=== PATIENT | female | born 1940 | race Caucasian/White ===

== ENCOUNTER 2018-02-03 11:35 | Emergency (ER) | payer MEDICARE, MEDICAID ==
--- NOTE | 2018-02-03 12:33 | UC ---
Upper Extremity HPI - HPI Summary HPI Summary: Patient stated she fell a few days ago and has pain and swelling in her entire right arm. At triage patient was found to be hypoxic patient states she has been falling a lot. PAtient continues to smoke cigarettes. Patient does state she is short of breath and gets worse when she talks. patient denies chest pain - History of Current Complaint Chief Complaint: Jesika Stated Complaint: S/P FALL-RT ARM INJURY Time Seen by Provider: 02/03/18 12:18 Hx Obtained From: Patient ?: No Onset/Duration: Sudden Onset Severity Initially: Mild Severity Currently: Mild Pain Intensity: 2 Pain Scale Used: 0-10 Numeric Location Of Pain: Is Discrete @ - pain in distal right forearm Character: Aching, Throbbing Alleviating Factor(s): Nothing Associated Signs And Symptoms: Positive: Swelling, Bruising - resolving Related History: Dominant Hand Right - Allergies/Home Medications Allergies/Adverse Reactions: Allergies Allergy/AdvReac Type Severity Reaction Status Date / Time ibuprofen Allergy Unknown Verified 02/03/18 11:56 Reaction Details morphine Allergy Unknown Verified 02/03/18 11:56 Reaction Details spironolactone Allergy Hyperkalemi Verified 02/03/18 11:56 a Home Medications: Home Medications Aspirin 81 mg CHEW TAB* [Aspirin Low Dose TAB*] 81 mg PO DAILY 02/03/18 [ History Confirmed 02/03/18] Furosemide TAB* [Lasix TAB*] 20 mg PO DAILY PRN 02/03/18 [History Confirmed ] Nitroglycerin TAB 0.4 MG* 0.4 mg SL . NEEDED PRN 02/03/18 [History Confirmed 02/03/18] Pravastatin (NF) [Pravachol (NF)] 20 mg PO BEDTIME 02/03/18 [History Confirmed 02/03/18] PMH/Surg Hx/FS Hx/Imm Hx Previously Healthy: No Endocrine History: Diabetes, Dyslipidemia Cardiovascular History: Cardiac Disease, Hypertension Respiratory History: COPD - Surgical History Surgical History: Yes Surgery Procedure, Year, and Place: Neck surgery 2012, 2 bars and a plate in the neck. Partial hysterectomy, 20-30 yrs ago - Family History Known Family History: Positive: Diabetes - Social History Occupation: Retired Lives: With Family Alcohol Use: None Substance Use Type: None Smoking Status (MU): Heavy Every Day Tobacco Smoker Type: Cigarettes Amount Used/How Often: 1 PPD Length of Time of Smoking/Using Tobacco: since age 16 Have You Smoked in the Last Year: Yes Cessation Counseling: Patient Advised to Stop Review of Systems Constitutional: Negative Skin: Bruising - distal right upper arm Eyes: Negative ENT: Negative Respiratory: Shortness Of Breath Cardiovascular: Negative Gastrointestinal: Negative Genitourinary: Negative Motor: Negative Neurovascular: Negative Musculoskeletal: Negative Neurological: Negative Psychological: Negative Is Patient Immunocompromised?: No All Other Systems Reviewed And Are Negative: Yes Physical Exam Triage Information Reviewed: Yes Appearance: No Pain Distress, Well-Nourished, Ill-Appearing - chronic illness Vital Signs: Initial Vital Signs Temp 97.7 F 02/03/18 11:48 Pulse 66 02/03/18 11:48 Resp 20 02/03/18 11:48 BP 98/62 02/03/18 11:48 Pulse Ox 89 02/03/18 11:48 Vital Signs Reviewed: Yes Eye Exam: Normal Eyes: Positive: Conjunctiva Clear ENT Exam: Normal ENT: Positive: Normal ENT inspection, Hearing grossly normal, Pharynx normal, Nasal congestion, TMs normal, Uvula midline. Negative: Trismus, Muffled voice, Hoarse voice, Dental tenderness, Sinus tenderness Dental Exam: Normal Neck exam: Normal Neck: Positive: Supple, Nontender Respiratory Exam: Normal Respiratory: Positive: Chest non-tender, Lungs clear, Normal breath sounds, No respiratory distress, No accessory muscle use Cardiovascular Exam: Normal Cardiovascular: Positive: RRR, No Murmur, Pulses Normal, Brisk Capillary Refill Musculoskeletal Exam: Normal Musculoskeletal: Positive: Edema @ - right arm, and both lower legs Neurological Exam: Normal Neurological: Positive: Alert, Muscle Tone Normal Psychological Exam: Normal Skin Exam: Normal Diagnostics - Radiology No standard instances Xray Interpretation: Positive (See Comments) Radiology Interpretation Completed By: Radiologist - 1. right pleural effusion 2. right ij thrombus and right neck mass Upper Extremity Course/Dx - Course Course Of Treatment: patient transfered to [facility] via EMS, O2 applied and patient ssats increased to mid 90"s - Differential Dx/Diagnosis Provider Diagnoses: right pleural effusion, right IJ occlusion right neck mass, nicotine dependant - Physician Notification/Consults Time Discussed With Above Provider: 14:20 - Kourtney Jenkins Instructed by Provider To: Transfer Discharge - Sign-Out/Discharge Documenting (check all that apply): Discharge - Discharge Plan Condition: Guarded Disposition: TRANS HIGHER LVL OF CARE FAC Referrals: Nathan Sahni MD [Primary Care Provider] - - Billing Disposition and Condition Condition: GUARDED Disposition: EMTALA
--- NOTE | 2018-02-03 13:07 | RAD ---
INDICATION: Short of breath COMPARISON: February 19, 2012 TECHNIQUE: PA and lateral views were obtained. FINDINGS: Bones/Soft Tissues: There are no acute bony findings. There is prior cervical fusion. There is a cardiac pacemaker Cardiomediastinal: The heart is normal in size. The central pulmonary vessels and interstitium are prominent compatible with interstitial congestion. Lungs: There is airspace disease in right lung base consistent with infiltrate, atelectasis, pleural fluid, or combination of the three. Pleura: There is a right-sided effusion. Other: None IMPRESSION: VASCULAR CONGESTION WITH RIGHT-SIDED EFFUSION AND SUSPECTED INFILTRATE OR COMPRESSION ATELECTASIS RIGHT LUNG BASE. SUGGEST FOLLOW-UP.
--- NOTE | 2018-02-03 13:13 | RAD ---
INDICATION: Fall. Right arm swelling COMPARISON: None TECHNIQUE: AP and lateral views were obtained. FINDINGS: There are no acute bony findings. There are mild irregularities about the greater tuberosity consistent with a remote injury and/or degenerative change. There is early calcific tendinitis and perhaps there are capsular calcifications. IMPRESSION: DEGENERATIVE FINDINGS. NO ACUTE CHANGE.
--- NOTE | 2018-02-03 13:44 | RAD ---
INDICATION: Pain and swelling. COMPARISON: None TECHNIQUE: Duplex interrogation of the upperextremity was performed. FINDINGS: Deep veins: The right IJ is thrombosed. This is nearly occlusive. The remaining deep venous structures of the upper extremity are patent with normal compressibility. Superficial veins: The basilic and cephalic veins are patent. Soft tissues: There is a large right neck mass which is exerting mass effect upon the internal jugular. The neck mass measures at least 5.4 x 2.9 x 5.8 cm. The mass requires further CT imaging. IMPRESSION: NEAR COMPLETE THROMBOSIS OF THE RIGHT INTERNAL JUGULAR VEIN. EXTRINSIC MASS EFFECT BY NEARLY 6 CM RIGHT NECK MASS. SUGGEST CT IMAGING. FINDINGS DISCUSSED WITH URGENT CARE
[2018-02-03 14:18] VITALS: BP 117/67
== END 2018-02-03 14:15 | disposition short-term general hospital (02) ==
LOC: UCCORT 11:35
DX: J90 Pleural effusion, not elsewhere classified (principal); I82.C11 Acute embolism and thrombosis of right internal jugular vein; R22.1 Localized swelling, mass and lump, neck; R29.6 Repeated falls; F17.210 Nicotine dependence, cigarettes, uncomplicated; M79.601 Pain in right arm; M79.89 Other specified soft tissue disorders; J44.9 Chronic obstructive pulmonary disease, unspecified; I10 Essential (primary) hypertension; E78.5 Hyperlipidemia, unspecified; E11.9 Type 2 diabetes mellitus without complications; Z88.6 Allergy status to analgesic agent; Z88.5 Allergy status to narcotic agent; Z88.8 Allergy status to other drugs, medicaments and biological substances; Z79.82 Long term (current) use of aspirin; Z79.899 Other long term (current) drug therapy; Z90.711 Acquired absence of uterus with remaining cervical stump
CPT/HCPCS: 71046; 99213; G0463

== ENCOUNTER 2018-02-07 16:03 | Emergency (ER) | payer MEDICARE, MEDICAID ==
[2018-02-07 19:26] LABS: ABS Basophils 0.1 10^3/ul (0-0.2); ABS Eosinophils 0.4 10^3/ul (0-0.6); ABS Lymphocytes 1.1 10^3/ul (1.0-4.8); ABS Monocytes 0.8 10^3/ul (0-0.8); ABS Nucleated RBC 0 10^3/ul; Eosinophil % 3.9 % (0-6); Hematocrit 43 % (35-47); Hemoglobin 14.2 g/dl (12.0-16.0); Lymphocyte % 11.2 % (25-47); Mean Corpuscular HGB Conc 33 g/dl (31-36); Mean Corpuscular Hemoglobin 30 pg (27-31); Mean Corpuscular Volume 90 fL (80-97); Mean Platelet Volume 8.5 um3 (7.4-10.4); Nucleated Red Blood Cells % 0.1; Platelet Count 334 10^3/ul (150-450); Red Blood Count 4.75 10^6/ul (4.0-5.4); Red Cell Distribution Width 16 % (10.5-15); White Blood Count 9.4 10^3/ul (3.5-10.8)
[2018-02-07 19:37] LABS: INR 0.93 (0.77-1.02)
[2018-02-07 19:43] LABS: EGFR Non-African American 48.5 (>60)
[2018-02-07] MEDS ORDERED: Apixaban* 2.5 MG TAB PO ONE (20:07)
[2018-02-07 20:28] VITALS: BP 116/69
[2018-02-07] MEDS ORDERED: Apixaban* 5 MG TAB PO ONE (21:00)
--- NOTE | 2018-02-07 21:07 | ED ---
Kailash Bradford Thomas, scribed for Twin Menon MD on 02/07/18 at 1911 . Upper Extremity Pain - HPI Summary HPI Summary: The patient is a 77 year old female who has a mass on her right axilla and has formed an upper extremity DVT. She comes in today to see if we can do anything about the swelling. She wants palliative care but does not want to be admitted to the hospital. She denies pain to her arm. - History of Current Complaint Chief Complaint: EDExtremityUpper Stated Complaint: RT ARM PAIN Time Seen by Provider: 02/07/18 18:13 Hx Obtained From: Patient Onset/Duration: Still Present Severity Currently: Moderate Aggravating Factor(s): Nothing Alleviating Factor(s): Elevation Associated Signs & Symptoms: Positive: Negative - patient denies any pain Related History: Other: - RUE tumor - Allergies/Home Medications Allergies/Adverse Reactions: Allergies Allergy/AdvReac Type Severity Reaction Status Date / Time ibuprofen Allergy Unknown Verified 02/07/18 16:12 Reaction Details Iodinated Contrast- Oral and Allergy See Comment Verified 02/07/18 16:12 IV Dye morphine Allergy Unknown Verified 02/07/18 16:12 Reaction Details spironolactone Allergy Hyperkalemi Verified 02/07/18 16:12 a Home Medications: Home Medications Albuterol HFA INHALER* [Ventolin HFA Inhaler*] 1 puff INH Q4H PRN 02/07/18 [ History Confirmed 02/07/18] Aspirin EC TAB* [Ecotrin EC Low Dose 81 MG*] 81 mg PO DAILY 02/07/18 [History Confirmed 02/07/18] Furosemide TAB* [Lasix TAB*] 20 mg PO DAILY 02/07/18 [History Confirmed 02/07/18 ] HYDROcodone/ACETAMIN 5-325 MG* [Vulcan 5-325 TAB*] 1 tab PO Q4H PRN 02/07/18 [ History Confirmed 02/07/18] Pravastatin (NF) [Pravachol (NF)] 40 mg PO DAILY 02/07/18 [History Confirmed ] Valsartan TAB* [Diovan TAB*] 80 mg PO DAILY 02/07/18 [History Confirmed 02/07/18 ] amLODIPine TAB* [Norvasc 5 mg TAB*] 2.5 mg PO DAILY 02/07/18 [History Confirmed 02/07/18] metFORMIN* [Glucophage 500 MG TAB *] 500 mg PO BID 02/07/18 [History Confirmed 02/07/18] PMH/Surg Hx/FS Hx/Imm Hx Endocrine/Hematology History: Reports: Hx Diabetes Denies: Hx Thyroid Disease Cardiovascular History: Reports: Hx Hypertension Respiratory History: Denies: Hx Asthma, Hx Chronic Obstructive Pulmonary Disease (COPD) GI History: Denies: Hx Ulcer - Cancer History Cancer Type, Location and Year: Unspecified cancer - Surgical History Surgery Procedure, Year, and Place: Neck surgery 2012, 2 bars and a plate in the neck. Partial hysterectomy, 20-30 yrs ago Infectious Disease History: No Infectious Disease History: Denies: Hx Clostridium Difficile, Hx Hepatitis, Hx Human Immunodeficiency Virus (HIV), Hx of Known/Suspected MRSA, Hx Shingles, Hx Tuberculosis, Hx Known/ Suspected VRE, Hx Known/Suspected VRSA, History Other Infectious Disease, Traveled Outside the [place] in Last 30 Days - Family History Known Family History: Positive: Diabetes - Social History Alcohol Use: None Substance Use Type: Reports: None Smoking Status (MU): Heavy Every Day Tobacco Smoker Type: Cigarettes Amount Used/How Often: 1 PPD Length of Time of Smoking/Using Tobacco: since age 16 Have You Smoked in the Last Year: Yes Review of Systems Negative: Fever Positive: Other - RUE pain, swellilng All Other Systems Reviewed And Are Negative: Yes Physical Exam - Summary Physical Exam Summary: Appearance: The patient is well-nourished in no acute distress and in no acute pain. Skin: The skin is warm and dry and skin color reflects adequate perfusion. HEENT: The head is normocephalic and atraumatic. The pupils are equal and reactive. The conjunctivae are clear and without drainage. Nares are patent and without drainage. Mouth reveals moist mucous membranes and the throat is without erythema and exudate. The external ears are intact. The ear canals are patent and without drainage. The tympanic membranes are intact. Neck: the neck is supple with full range of motion and non-tender. There are no carotid bruits. There is no neck vein distension. Respiratory: Chest is non-tender. Lungs are clear to auscultation and breath sounds are symmetrical and equal. Cardiovascular: Heart is regular rate and rhythm. There is no murmur or rub auscultated. There is peripheral edema in bilateral lower extremities. Pulses are symmetrical and equal. Abdomen: The abdomen is soft and non-tender. There are normal bowel sounds heard in all four quadrants and there is no organomegaly palpated. Musculoskeletal: There is no back tenderness noted. Extremities are non-tender with full range of motion. There is good capillary refill. There is peripheral edema to bilateral lower extremities. There is no calf tenderness elicited. Extremities: She has peripheral edema to bilateral lower extremities. The right upper extremity is grossly swollen. Neurological: Patient is alert and oriented to person, place and time. The patient has symmetrical motor strength in all four extremities. Cranial nerves are grossly intact. Deep tendon reflexes are symmetrical and equal in all four extremities. Psychiatric: The patient has an appropriate affect and does not exhibit any anxiety or depression. Triage Information Reviewed: Yes Vital Signs On Initial Exam: Initial Vitals Temp Pulse Resp BP Pulse Ox 98 F 66 16 108/65 92 02/07/18 16:12 02/07/18 16:12 02/07/18 16:12 02/07/18 16:12 02/07/18 16:12 Vital Signs Reviewed: Yes Diagnostics - Vital Signs Vital Signs Temp Pulse Resp BP Pulse Ox 02/07/18 16:12 98 F 66 16 108/65 92 - Laboratory Lab Results: Lab Results 02/07/18 02/07/18 02/07/18 Range/Units 19:14 19:14 19:14 WBC 9.4 (3.5-10.8) 10^3/ul RBC 4.75 (4.0-5.4) 10^6/ul Hgb 14.2 (12.0-16.0) g/dl Hct 43 (35-47) % MCV 90 (80-97) fL MCH 30 (27-31) pg MCHC 33 (31-36) g/dl RDW 16 H (10.5-15) % Plt Count 334 (150-450) 10^3/ul MPV 8.5 (7.4-10.4) um3 Neut % (Auto) 74.4 (38-83) % Lymph % (Auto) 11.2 L (25-47) % [place] % (Auto) 9.0 H (0-7) % Eos % (Auto) 3.9 (0-6) % Baso % (Auto) 1.5 (0-2) % Absolute Neuts (auto) 7.0 (1.5-7.7) 10^3/ul Absolute Lymphs (auto) 1.1 (1.0-4.8) 10^3/ul Absolute Monos (auto) 0.8 (0-0.8) 10^3/ul Absolute Eos (auto) 0.4 (0-0.6) 10^3/ul Absolute Basos (auto) 0.1 (0-0.2) 10^3/ul Absolute Nucleated RBC 0 10^3/ul Nucleated RBC % 0.1 INR (Anticoag Therapy) 0.93 (0.77-1.02) Sodium 141 (139-145) mmol/L Potassium 3.2 L (3.5-5.0) mmol/L Chloride 100 L (101-111) mmol/L Carbon Dioxide 32 (22-32) mmol/L Anion Gap 9 (2-11) mmol/L BUN 17 (6-24) mg/dL Creatinine 1.09 H (0.51-0.95) mg/dL Est GFR ( Amer) 62.4 (>60) Est GFR (Non-Af Amer) 48.5 (>60) BUN/Creatinine Ratio 15.6 (8-20) Glucose 195 H (70-100) mg/dL Calcium 9.1 (8.6-10.3) mg/dL Total Bilirubin 0.30 (0.2-1.0) mg/dL AST 14 (13-39) U/L ALT 10 (7-52) U/L Alkaline Phosphatase 60 (34-104) U/L Total Protein 6.0 L (6.4-8.9) g/dL Albumin 3.1 L (3.2-5.2) g/dL Globulin 2.9 (2-4) g/dL Albumin/Globulin Ratio 1.1 (1-3) Result Diagrams: 02/07/18 19:14 02/07/18 19:14 Lab Statement: Any lab studies that have been ordered have been reviewed, and results considered in the medical decision making process. Re-Evaluation - Re-Evaluation First Eval Re-Evaluation Time: 20:10 Comment: Care going forward was discussed. Patient will be discharged. Course/Dx - Course Course Of Treatment: Ms. Moura has a GFR of 48 and I will start her on Eliquis in the hopes that that will help her left arm to drain. She wants symptomatic treatment only and would like a palliative care consult at her house. She is not ready to be on hospice just yet. - Diagnoses Provider Diagnoses: DVT (deep venous thrombosis) Discharge - Sign-Out/Discharge Documenting (check all that apply): Discharge - Discharge Plan Condition: Stable Disposition: HOME Prescriptions: Apixaban [Eliquis] 5 mg PO BID #30 [id number] Patient Education Materials: Deep Vein Thrombosis (ED) Referrals: Nathan Sahni MD [Primary Care Provider] - Roxann Yin MD [Medical Doctor] - If Needed Additional Instructions: Follow up with your doctor. I have put in a palliative care consult for you as well. Return to the emergency department for new or worsening symptoms. - Billing Disposition and Condition Condition: STABLE Disposition: HOME The documentation as recorded by the Kailash goldstein Thomas accurately reflects the service I personally performed and the decisions made by me, Twin Menon MD.
== END 2018-02-07 20:24 | disposition home or self-care (01) ==
LOC: ED 16:03
DX: I82.621 Acute embolism and thrombosis of deep veins of right upper extremity (principal); E11.9 Type 2 diabetes mellitus without complications; Z79.84 Long term (current) use of oral hypoglycemic drugs; Z88.5 Allergy status to narcotic agent; I10 Essential (primary) hypertension; Z88.8 Allergy status to other drugs, medicaments and biological substances; Z88.6 Allergy status to analgesic agent; Z91.041 Radiographic dye allergy status; F17.210 Nicotine dependence, cigarettes, uncomplicated
CPT/HCPCS: 36415; 80053; 85025; 85610; 99282